=== PATIENT | male | born 1995 | race Caucasian/White ===

== ENCOUNTER 2017-03-18 09:36 | Emergency (ER) | payer BC ==
[2017-03-18 09:43] VITALS: BP 120/97
--- NOTE | 2017-03-18 09:46 | EDM.PDOC ---
ED HPI GENERAL MEDICAL PROBLEM - General Chief Complaint: General Stated Complaint: POSS EXPOSURE TO HIV Time Seen by Provider: 03/18/17 09:46 Source of Information: Reports: Patient History Limitations: Reports: No Limitations - History of Present Illness INITIAL COMMENTS - FREE TEXT/NARRATIVE: 21-year-old male came to the ED today primarily to have HIV status checked. He reports he was extremely promiscuous in 2011 and is been on his mind for many years that he may have contracted HIV. This is with heterosexual practice. He has never been an IV drug user and denies any homosexual experiences. He is currently entering into a new relationship and of course the possibility of HIV came up in the conversation. He wishes to have HIV status checked. He has no signs or symptoms of chronic illness that would suggest HIV./AIDS. Onset: Unknown/Unsure Duration: Chronic (Worried about possibility of jane HIV for the last 5 years.) Severity: Severe (Anxiety about possibility of being HIV positive.) Improves with: Reports: None Worsens with: Reports: None Context: Denies: Activity, Exercise, Lifting, Sick Contact, Trauma, Other Associated Symptoms: Reports: No Other Symptoms Treatments [employer]: Reports: Other (see below) - Related Data Allergies Allergy/AdvReac Type Severity Reaction Status Date / Time No Known Allergies Allergy Verified 06/03/16 00:06 Home Meds: Home Meds . [No Known Home Meds] 03/18/17 [History] Past Medical History - Past Health History Medical/Surgical History: Denies Medical/Surgical History Social & Family History - Tobacco Use Smoking Status *Q: Current Every Day Smoker Years of Tobacco use: 2 Packs/Tins Daily: 0.5 - Recreational Drug Use Recreational Drug Use: No - Sexual History Sexual History: Reports: Multiple Partners, Sexually Active, Other (See Below) ( Heterosexual practice. No homosexual experiences.) Other Sexual History Comment: Denies ever using intravenous drugs. ED ROS GENERAL - Review of Systems Review Of Systems: See Below Constitutional: Reports: No Symptoms HEENT: Reports: No Symptoms Respiratory: Reports: No Symptoms Cardiovascular: Reports: No Symptoms Endocrine: Reports: No Symptoms GI/Abdominal: Reports: No Symptoms : Reports: No Symptoms Musculoskeletal: Reports: No Symptoms Skin: Reports: No Symptoms Neurological: Reports: No Symptoms Psychiatric: Reports: No Symptoms Hematologic/Lymphatic: Reports: No Symptoms Immunologic: Reports: No Symptoms ED EXAM, GENERAL - Physical Exam Exam: See Below Exam Limited By: No Limitations General Appearance: Alert, WD/WN, Anxious Eye Exam: Bilateral Eye: Normal Inspection (No scleral icterus.) Throat/Mouth: Normal Inspection, Normal Lips, Normal Teeth, Normal Oropharynx Head: Atraumatic, Normocephalic Neck: Normal Inspection, Supple, Non-Tender, Full Range of Motion. No: Lymphadenopathy (L), Lymphadenopathy (R) Respiratory/Chest: No Respiratory Distress, Lungs Clear, Normal Breath Sounds, No Accessory Muscle Use Cardiovascular: Normal Peripheral Pulses, Regular Rate, Rhythm, No Murmur, No Rub, Tachycardia (Mildly tachycardic I believe from being anxious. BP is mildly elevated at 120/97.) Peripheral Pulses: 3+: Posterior Tibial (L), Posterior Tibial (R), Dorsalis Pedis (L), Dorsalis Pedis (R) Neurological: Alert (Mildly anxious), Oriented, CN II-XII Intact, Normal Cognition, Normal Gait, No Motor/Sensory Deficits Psychiatric: Normal Affect, Normal Mood, Anxious Skin Exam: Warm, Dry, Intact, Normal Color, No Rash Lymphatic: No Adenopathy Course - Vital Signs Last Recorded V/S: Last Vital Signs Temp 36.6 C 03/18/17 09:40 Pulse 100 03/18/17 09:40 Resp 16 03/18/17 09:40 BP 120/97 H 03/18/17 09:40 Pulse Ox 100 03/18/17 09:40 - Orders/Labs/Meds Labs: Laboratory Tests 03/18/17 Range/Units 09:50 HIV-1 Ab Rapid Screen Negative (NEGATIVE) - Radiology Interpretation Free Text/Narrative:: 21-year-old male attends the ED basically requesting HIV checkup. Patient has been worried for several years that he contracted HIV during a period of time that he was very promiscuous sexually. He reports no homosexual experiences and denies ever having using intravenous drugs. All of his expensive where high risk however with heterosexual females. He is currently entering into a new relationship and is requesting HIV checkup. He has no signs or symptoms of chronic illness. - Re-Assessments/Exams Free Text/Narrative Re-Assessment/Exam: 03/18/17 11:40: HIV rapid came back negative. Patient was markedly relieved to hear this news. No follow-up is otherwise indicated. Verbal discharge notes given. He states he does practice safe sexual practices at this time. Departure - Departure Time of Disposition: 11:32 Disposition: Home, Self-Care 01 Condition: Good Clinical Impression: Negative laboratory testing for HIV - Discharge Information Referrals: PCP,None [Primary Care Provider] - Forms: ED Department Discharge Additional Instructions: Verbal instructions given to the patient that his HIV status is negative at this time. There was really nothing else to comment on. He is using protection during sexual intercourse.
== END 2017-03-18 11:33 | disposition home or self-care (01) ==
LOC: JD.ED 09:36
DX: Z11.4 Encounter for screening for human immunodeficiency virus [HIV] (principal); F17.210 Nicotine dependence, cigarettes, uncomplicated
CPT/HCPCS: 36415; 99283; G0433; 99282